=== PATIENT | female | born 1995 | race Caucasian/White ===

== ENCOUNTER 2017-06-17 13:53 | Emergency (ER) | payer OTHER ==
[~2017-06-17] VITALS: Ht 157.5 cm; Wt 108.0 kg
--- NOTE | ~2017-06-17 | CR282 ---
[facility]. [facility] A Service of [facility] & [facility] RADIOLOGY TEXT RESULTS PATIENT: CHEYANNE HORN LOCATION: SED : [birth year] UNIT #: [id number] AGE: [address]: VASILE ALVAREZ SEX: F ORDER DR: [id number] [place] [id number] E MR#: [id number] Acc #: [id number] NAME: CHEYANNE HORN : 1995 SEX: F STUDY DATE/TIME: 06/17/2017 14:12 UNIT: SED ROOM: STUDY DESCRIPTION: CR Wrist Min 3 View Rt Attending Physician: Vasile Alvarez Ordering Physician: Keith Not Listed MEDICAL IMAGING REPORT This report is preliminary unless electronic signature is present. EXAM Right wrist, 06/17/2017. INDICATIONS Pain and swelling for 3 days. Injury on water slide. FINDINGS Wrist evaluation in multiple projections shows normal mineralization of the bony structures about the wrist and satisfactory articular relationship of the radius and ulna to the proximal carpal row and of the distal carpal segments to the metacarpal bases. There is no indication of fracture or dislocation, and no soft tissue radiopaque foreign body is present. No congenital defects are apparent. IMPRESSION Normal wrist. Dictated by... Reginald Alejandre Jr., M.D. THIS IS AN ELECTRONICALLY VERIFIED REPORT Reginald Alejandre Jr., M.D. at 06/17/2017 4:51 PM SHANNON/latanya TD: 06/17/2017 16:41 JOB #: [id number] MEDICAL IMAGING REPORT Page 1 of 1
[~2017-06-17 13:53] MED LIST: ADVAIR 2501 DISK W/D PO; DICLOXAXILLIN250 MG PO; METFORMIN HCL500 M1; ZOLOFT
== END 2017-06-17 15:45 | disposition home or self-care (01) ==
LOC: SED 13:53
DX: S63.501A Unspecified sprain of right wrist, initial encounter (principal); Z88.0 Allergy status to penicillin; Z88.1 Allergy status to other antibiotic agents; X58.XXXA Exposure to other specified factors, initial encounter; Y92.9 Unspecified place or not applicable
CPT/HCPCS: 29125; 73110; 99283